=== PATIENT | female | born 1945 | race Caucasian/White ===

== ENCOUNTER 2023-11-15 17:15 | Emergency (ER) | payer MEDICARE, OTHER, SELFPAY ==
[2023-11-15] VITALS (15 sets, daily range): BP systolic 126–184; BP diastolic 57–96; PULSE 60–63; RESP 12–32; TEMP 36.8; O2SAT 96–100; BMI 22.8
--- NOTE | 2023-11-15 17:25 | DI.RAD.S_ITS ---
PROCEDURE: XR CHEST 1V INDICATIONS: chest pain TECHNIQUE: One view of the chest was acquired. COMPARISON: None. FINDINGS: Surgical changes and devices: Left chest wall pacemaker leads are in the region of right atrium and right ventricle. Lungs and pleura: Lungs are clear. No pleural effusions or pneumothorax. Mediastinum: Mediastinal contours appear normal. Heart size is normal. Bones and chest wall: No suspicious bony lesions. Overlying soft tissues appear unremarkable. IMPRESSION: No acute cardiopulmonary pathology. Dictated by: Lg Maloney M.D. on 11/15/2023 at 18:00 Approved by: Lg Maloney M.D. on 11/15/2023 at 18:03
[2023-11-15] MEDS: ONDANSETRON 4 MG/2 ML INJ IV (17:41)
--- NOTE | 2023-11-15 18:51 | ED_ITS ---
HPI - Arrhythmia/Palpitations General Chief Complaint: Arrhythmia/Palpitations Stated Complaint: pacemaker is acting up, missing beats Time Seen by Provider: 11/15/23 18:00 Source: patient Mode of arrival: Ambulatory History of Present Illness HPI narrative: 78-year-old female with history atrial fibrillation with pacemaker presents by private vehicle for nausea as well as intermittent left-sided chest tightness. Patient states that she was in [place] on vacation for from home and out of precaution decided to seek evaluation. She was concerned that maybe her atrial fibrillation is not quite being captured by her pacemaker. She denies syncope, shortness of breath, any other pains at this time. Related Data Home Medications Medication Instructions Recorded Confirmed CALCIUM CITRATE/VITAMIN D3 1 tab PO Q DAY ##0 02/15/12 01/27/22 [CO-Q-10] 100 mg PO QDAY ##0 12/17/16 01/27/22 [OMEGA-3] PO QDAY ##0 12/17/16 01/27/22 levothyroxine 88 mcg tablet 0.088 mg PO QAM ##0 03/15/17 01/27/22 amlodipine PO 01/12/22 01/27/22 rosuvastatin 5 mg tablet 5 mg PO DAILY 01/12/22 01/27/22 Previous Rx's Medication Instructions Recorded ondansetron 4 mg disintegrating 4 mg PO Q8H PRN nausea and 11/15/23 tablet vomiting #30 tabs Allergies Allergy/AdvReac Type Severity Reaction Status Date / Time cefuroxime [From CEFTIN] Allergy Unknown Verified 11/15/23 17:42 Penicillins [PENICILLINS] Allergy Unknown Verified 11/15/23 17:42 Sulfa (Sulfonamide Allergy Swelling Verified 11/15/23 17:43 Antibiotics) of Lip/Tongue/Throat Review of Systems Review of Systems Narrative: See HPI Patient History Medical History Segmental and somatic dysfunction of abdomen and other regions Sacral region somatic dysfunction Pelvic somatic dysfunction Chronic left-sided low back pain without sciatica Surgical History History of tonsillectomy History of carpal tunnel repair History of thyroidectomy Family History Mother Stroke Grandfather Heart disease Stroke Social History Smoking Status: Never smoker Smoking Status: Never smoker Substance Use Type: does not use Exam Initial Vital Signs Initial Vital Signs: Vital Signs Temperature 98.3 F 11/15/23 17:18 Pulse Rate 63 11/15/23 17:18 Respiratory Rate 18 11/15/23 17:18 Blood Pressure 161/72 H 11/15/23 17:18 Pulse Oximetry 100 11/15/23 17:18 Oxygen Delivery Method Room Air 11/15/23 17:18 Const: Awake, alert, no acute distress, nontoxic appearing Cardiac: regular rate, regular rhythm RESP: unlabored, clear bilaterally, no wheezing GI: Soft, nontender, nondistended, no rebound, no guarding MSK: Atraumatic, full range of motion, pulses equal Skin: Warm, Dry, intact, no rashes Neuro: AO x3, CN II-XII grossly intact, moves all extremities Course Orders Ordered: ED Orders 11/15/23 19:40 Complete Blood Count AUTO DIFF Stat Comprehensive Metabolic Panel Stat Lipase Stat Magnesium Stat PTT Partial Thromboplastin Mandeep Stat Prothrombin Time INR Stat Troponin & CK Cardiac Panel Stat Discontinued Medications Aspirin (Aspirin 81 Mg Chew Tab) 324 mg PO NOW ONE Stop: 11/15/23 17:26 Last Admin: 11/15/23 19:32 Dose: Not Given Documented By: MICHAEL Ondansetron HCl (Ondansetron 4 Mg/2 Ml Inj) 4 mg IV NOW PRN PRN Reason: Nausea And Vomiting Last Admin: 11/15/23 17:41 Dose: 4 mg Documented By: SLOANE Vital Signs Vital signs: Vital Signs - 8 hr 11/15/23 19:30 11/15/23 19:31 11/15/23 19:31 Pulse Rate 60 60 Respiratory Rate 19 17 Blood Pressure 133/96 H Pulse Oximetry 98 98 Oxygen Delivery Method 11/15/23 20:00 11/15/23 20:01 11/15/23 20:01 Pulse Rate 61 60 Respiratory Rate 17 32 H Blood Pressure 184/78 H Pulse Oximetry 99 99 Oxygen Delivery Method 11/15/23 20:30 11/15/23 20:31 11/15/23 20:31 Pulse Rate 60 60 Respiratory Rate 12 13 Blood Pressure 146/67 H Pulse Oximetry 96 97 Oxygen Delivery Method 11/15/23 21:00 11/15/23 21:00 11/15/23 21:22 Pulse Rate 60 Respiratory Rate 15 Blood Pressure 158/69 H 153/68 H Pulse Oximetry 96 Oxygen Delivery Method 11/15/23 21:22 11/15/23 21:29 11/15/23 21:30 Pulse Rate 60 61 Respiratory Rate 16 21 Blood Pressure 144/57 H Pulse Oximetry 97 96 Oxygen Delivery Method 11/15/23 21:48 Pulse Rate 60 Respiratory Rate 14 Blood Pressure 144/57 H Pulse Oximetry 99 Oxygen Delivery Method Room Air MDM - Arrhythmia/Palpitations Differential Diagnosis Differential diagnosis: Likely palpitations, anxiety and sinus tachycardia Lab Data 11/15/23 19:40 11/15/23 19:40 Labs: Lab Results 11/15/23 Range/Units 19:40 WBC 5.9 (4.5-11.0) X10^3/uL RBC 4.21 (4.0-5.2) X10^6/uL Hgb 12.7 (12.0-16.0) g/dL Hct 38.0 (36-46) % MCV 90.3 (80-100) fL MCH 30.2 (26-34) PG MCHC 33.4 (30-36) % RDW 14.1 (11.6-14.8) % Plt Count 239 (150-400) X10^3/uL Neut % (Auto) 61.0 (50-75) % Lymph % (Auto) 27.6 (25-40) % [place] % (Auto) 9.3 (3-14) % Eos % (Auto) 1.3 L (2-4) % Baso % (Auto) 0.8 (0-2) % Neut # (Auto) 3600 (2372-9794) /uL Lymph # (Auto) 1600 (7091-0480) /uL [place] # (Auto) 500 (0-900) /uL Eos # (Auto) 100 (0-450) /uL Baso # (Auto) 0 (0-100) /uL PT 11.3 (9.4-12.5) SECONDS INR 1.0 (0.9-1.3) APTT 43 H (25.1-36.5) SECONDS Sodium 136 L (137-145) mmol/L Potassium 4.0 (3.4-5.1) mmol/L Chloride 108 H (98-107) mmol/L Carbon Dioxide 26 (22-32) mmol/L BUN 14 (7-17) mg/dL Creatinine 0.57 (0.52-1.04) mg/dL Estimated GFR > 60 (>60) mL/min BUN/Creatinine Ratio 24.6 H (6-22) Glucose 86 (80-110) mg/dL Calcium 8.8 (8.4-10.2) mg/dL Magnesium 2.3 (1.6-2.3) mg/dL Total Bilirubin 0.5 (0.2-1.3) mg/dL AST 26 (14-36) IU/L ALT 15 (<35) IU/L Alkaline Phosphatase 57 (38-126) U/L Total Creatine Kinase 54 (30-135) U/L Troponin I < 0.012 (0.01-0.034) ng/mL Total Protein 6.6 (6.3-8.2) g/dL Albumin 4.2 (3.5-5.0) g/dL Globulin 2.4 (1.7-4.1) g/dL Albumin/Globulin Ratio 1.8 (1.0-2.8) Lipase 53 (23-300) U/L Imaging Data Chest x-ray: Radiologist's Impresson: PROCEDURE: XR CHEST 1V INDICATIONS: chest pain TECHNIQUE: One view of the chest was acquired. COMPARISON: None. FINDINGS: Surgical changes and devices: Left chest wall pacemaker leads are in the region of right atrium and right ventricle. Lungs and pleura: Lungs are clear. No pleural effusions or pneumothorax. Mediastinum: Mediastinal contours appear normal. Heart size is normal. Bones and chest wall: No suspicious bony lesions. Overlying soft tissues appear unremarkable. IMPRESSION: No acute cardiopulmonary pathology. Dictated by: Lg Maloney M.D. on 11/15/2023 at 18:00 Approved by: Lg Maloney M.D. on 11/15/2023 at 18:03 ECG Data Interpretation: Atrial paced rhythm at 60 beats per minute, normal ventricular conduction, no ST T wave changes MDM Narrative Medical decision making narrative: Patient presenting for nauseous sensation with intermittent left-sided pains in her chest. Patient states she was mostly here precautions and she was on vacation and far from her primary care doctor in [facility]. EKG is paced rhythm without concerning findings. Patient's pacemaker was interrogated with no abnormal incidents found. Laboratory work reviewed, unremarkable, electrolytes normal, troponin undetectable. Chest x-ray negative for acute findings. Patient reports resolution of her symptoms with the Zofran. Patient informed of all lab and imaging findings as well as results of pacemaker interrogation. 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 Script for Zofran sent to pharmacy of choice. Discharge Plan Departure Patient Disposition: Home Clinical Impression: Nausea, History of permanent cardiac pacemaker placement Instructions: DI for Nausea -- Adult Activity Restrictions/Additional Instructions: Your pacemaker interrogation did not show any abnormal events. Your laboratory work is normal with no evidence of heart attack or cardiac abnormalities. Zofran has been sent to the [facility] in [place]. Prescriptions: New ondansetron 4 mg tablet,disintegrating 4 mg PO Q8H PRN (Reason: nausea and vomiting) Qty: 30 0RF No Action amlodipine PO rosuvastatin 5 mg tablet 5 mg PO DAILY CALCIUM CITRATE/VITAMIN D3 1 tab PO Q DAY Qty: 0 [CO-Q-10] 100 mg PO QDAY Qty: 0 [OMEGA-3] PO QDAY Qty: 0 levothyroxine 88 MCG tablet 0.088 mg PO QAM Qty: 0 Referrals: Miscellaneous,DoctorMD [Primary Care Provider] - Stand Alone Forms: Patient Portal/API
[2023-11-15 19:51] LABS: Add Manual Diff / Slide Review NO; Basophils Absolute Auto 0 /uL (0-100); Basophils Percent Auto 0.8 % (0-2); Eosinophils Absolute Auto 100 /uL (0-450); Eosinophils Percent Auto 1.3 % (2-4); Hemoglobin 12.7 g/dL (12.0-16.0); Lymphocytes Absolute Auto 1600 /uL (1100-4500); Lymphocytes Percent Auto 27.6 % (25-40); Mean Corpuscular HGB Conc 33.4 % (30-36); Mean Corpuscular Hemoglobin 30.2 PG (26-34); Mean Corpuscular Volume 90.3 fL (80-100); Monocytes Absolute Auto 500 /uL (0-900); Monocytes Percent Auto 9.3 % (3-14); Neutrophils Absolute Auto 3600 /uL (1500-7000); Platelet Count 239 X10^3/uL (150-400); Red Blood Cell Count 4.21 X10^6/uL (4.0-5.2); Red Cell Distribution Width 14.1 % (11.6-14.8); White Blood Cell Count 5.9 X10^3/uL (4.5-11.0)
[2023-11-15 20:02] LABS: Prothrombin Time 11.3 SECONDS (9.4-12.5)
[2023-11-15 20:05] LABS: PTT Partial Thromboplastin Tim 43 SECONDS (25.1-36.5)
[2023-11-15 20:12] LABS: Alanine Aminotransferase 15 IU/L (<35); Albumin 4.2 g/dL (3.5-5.0); Albumin Globulin Ratio 1.8 (1.0-2.8); Alkaline Phosphatase 57 U/L (38-126); Aspartate Aminotransferase 26 IU/L (14-36); BUN Creatinine Ratio 24.6 (6-22); Bilirubin Total 0.5 mg/dL (0.2-1.3); Blood Urea Nitrogen 14 mg/dL (7-17); Calcium 8.8 mg/dL (8.4-10.2); Carbon Dioxide 26 mmol/L (22-32); Chloride 108 mmol/L (98-107); Creatine Kinase 54 U/L (30-135); Estimated Glomerular Filt Rate > 60 mL/min (>60); Globulin 2.4 g/dL (1.7-4.1); Glucose 86 mg/dL (80-110); HEMOLYSIS < 15 (0-50); Lipase 53 U/L (23-300); Magnesium 2.3 mg/dL (1.6-2.3); Sodium 136 mmol/L (137-145); Total Protein 6.6 g/dL (6.3-8.2)
[2023-11-15 20:22] LABS: Troponin I < 0.012 ng/mL (0.01-0.034)
== END 2023-11-15 21:50 | disposition home or self-care (01) ==
PROVIDERS: Emergency Medicine; Emergency Provider Emergency Medicine
DX: R07.9 Chest pain, unspecified (principal); R11.0 Nausea; Z95.0 Presence of cardiac pacemaker
CPT/HCPCS: 36415; 71045; 80053; 82550; 83690; 83735; 84484; 85025; 85610; 85730; 93005; 96374; 99284; J2405